=== PATIENT | female | born 1935 | race Caucasian/White ===

== ENCOUNTER 2025-02-26 09:10 | Emergency (ER) | payer MEDICARE, SELFPAY ==
[2025-02-26 09:19] VITALS: BP 145/82
[2025-02-26] MEDS: LET TOPICAL ANESTHETIC GEL 3 ML TOPICAL (09:52)
[2025-02-26 10:00] VITALS: BP 131/63
[2025-02-26 11:36] VITALS: BP 125/58
[2025-02-26 12:00] VITALS: BP 130/54
--- NOTE | 2025-02-26 12:19 | ED.GENMED ---
History of Present Illness
General
Chief Complaint: Fall
Source: patient
Exam Limitations: none
Time Seen by Provider: 02/26/25 09:21
History of Present Illness
History of Present Illness:
89-year-old female who presents from [facility] facility. The patient states that she went to go to the bathroom and fell. She struck her head. The patient my assessment states ', Just let me '. Patient denies any other complaints other
than pain at the site of her head injury. Patient denies neck pain. She denies knee or hip pain. No vomiting
Past History
Past History
ED Past Medical History: Other (Dementia, hypertension, schizophrenia, anxiety, depression)
Phy Exam
Physical Exam
Physical Exam:
CONSTITUTIONAL Patient alert and oriented to person, place and time. Well-appearing. Vital signs reviewed.
HEAD 2.5 cm laceration to the scalp on the left posterior scalp.
EYES eyelids normal to inspection, Extraocular muscles intact, Conjunctiva normal, Sclera normal.
NECK normal range of motion, Trachea midline, no jugular venous distention. No midline tenderness
RESPIRATORY CHEST No respiratory distress noted, Chest expansion equal
BACK normal inspection, no obvious deformities. No midline tenderness
UPPER EXTREMITY range of motion normal, Motor strength normal, no cyanosis, no edema.
LOWER EXTREMITY range of motion normal, knees and hips have full range of motion. No pain with internal or external rotation of the hips motor strength normal, no cyanosis, no edema.
NEURO Speech normal, No focal motor deficits, [place] coma scale 15, Memory normal, Cranial Nerves intact to screening exam.
SKIN skin warm, dry, and normal in color.
Course
Orders/Labs/Results
Orders:
Orders
02/26/25 09:37
Lidocaine/Epinephrine/Tetracai [Let Topical Anesthetic Gel] 3 ml TOPICAL NOW STA
02/26/25 09:38
CT Cervical Spine W/o Iv Contr Urgent
Comment:
Reason For Exam: fall
CT Head W/o Iv Contrast Urgent
Comment:
Reason For Exam: fall
02/26/25 09:39
Lidocaine/Epinephrine/Tetracai [Let Topical Anesthetic Gel] 3 ml .ROUTE .K-MED ONE
Vital Signs
Initial and Last Documented VS:
Initial Vital Signs
Pulse Resp Pulse Ox
68 11 97
02/26/25 09:18 02/26/25 09:18 02/26/25 09:18
Last Documented Vital Signs
Temp Pulse Resp BP Pulse Ox
98.6 F 63 19 130/54 95
02/26/25 09:19 02/26/25 12:15 02/26/25 12:15 02/26/25 12:00 02/26/25 10:15
Procedures
Laceration Closure
Left Scalp:
Status of Wound: clean
Size of Wound in cm: 2.5
Description of Wound Edges: sharp
Preparation: cleaned with saline
Anesthesia: Topical-LET
Revision/Debridement: routine- no revision
Type of Closure: single layer closure
Skin Closure Material: skin costa
Number of sutures: 3
MDM/Problems Addressed
Differential Diagnosis Includes:
Skull fracture, subdural hematoma, intraparenchymal hemorrhage, cervical spine fracture
MDM/Problems Addressed:
Head injury, scalp laceration
*Radiology
Radiology exam reviewed: preliminary read by ED provider (No obvious intracranial acute hemorrhage) and radiology read reviewed
*Pulse Oximetry
Patient hypoxic: no
*Critical Care Note
Total Time (30-74mins, 75-104mins- exclusive of procedures): Not Applicable
Data Reviewed
Source: patient
Further Testing Considered But Not Given:
Consider labs the patient had a mechanical fall
Patient Management
Escalation/DeEscalation of care consider admission/obs:
CT noted but patient does not want advanced interventions. Will refer to outpatient follow-up. Laceration repaired
ED Attending Note
-
Portions of this chart may have been created with voice recognition software.� Occasional wrong word or��sound alike� substitutions may have occurred due to the inherent limitations of voice recognition software.
Discharge Plan
Departure
Patient Disposition: Home (Routine Discharge)
Date of Disposition: 02/26/25
Time of Disposition: 12:23
Patient with high blood pressure during this ER visit?: No
Discharge Problem:
Head injury, Laceration of scalp
Instructions: Wound Care (DC), Head Injury in Adults (DC), Laceration Repair With [place] (DC)
Prescriptions:
No Action
acetaminophen 325 mg Tablet
650 mg PO Q6HPRN PRN (Reason: mild pain, fever)
citalopram 10 mg Tablet
10 mg PO DAILY
clonazepam [Klonopin] 1 mg Tablet
1 mg PO BID
lithium carbonate 150 mg Capsule
150 mg PO BID
amlodipine 10 mg Tablet
10 mg PO DAILY
mirtazapine 30 mg Tablet
30 mg PO HS
Debrox 6.5 % Drops
1 drp OTIC (EAR) BID
lurasidone 60 mg Tablet
60 mg PO DAILY
duloxetine 60 mg Capsule, Delayed Rel Sprinkle
60 mg PO BID
ondansetron HCl [Zofran] 4 mg Tablet
4 mg PO Q8HPRN PRN (Reason: nausea)
loperamide 2 mg Tablet
2 mg PO Q8HPRN PRN (Reason: diarrhea)
levothyroxine [Synthroid] 75 mcg Tablet
75 mcg PO DAILY
magnesium hydroxide [Milk of Magnesia] 400 mg/5 mL Suspension
2,400 mg PO DAILYPRN PRN (Reason: if no bm by 3rd day)
bisacodyl [Dulcolax (bisacodyl)] 10 mg Suppository
10 mg MT DAILYPRN PRN (Reason: if no bm aftr mom)
Fleet Enema 19-7 gram/118 mL Enema
118 ml MT DAILYPRN PRN (Reason: if no bm aftr dulcolcax)
docusate sodium [Colace] 100 mg Capsule
100 mg PO DAILY
Referrals:
Benny Abad, DO [Family Provider] -
Activity Restrictions/Additional Instructions:
Return today for change in mentation, vomiting, weakness of any kind or any other concerns. Please see your doctor in the next 1 week for follow-up and reevaluation.
Interventions
Interventions:
*Risk Screen - Suicide Last Done: 02/26/25 09:21
*General Assessment Last Done: 02/26/25 09:21
*Neglect/Abuse Screening Last Done: 02/26/25 09:21
*ED- Fall Risk Assessment Last Done: 02/26/25 09:24
*ED COVID-19 Vaccine History Last Done: 02/26/25 09:24
ED- Neurological Assessment Last Done: 02/26/25 09:24
ED-Skin Assessment Last Done: 02/26/25 09:26
Discharge Date and Time
Print Language: TAJIK
[2025-02-26 13:00] VITALS: BP 137/67
[2025-02-26 14:18] VITALS: BP 145/67
--- NOTE | 2025-02-26 14:47 | EDRN ---
Pt has dementia. She frequently talks about how she ' doesn't want to live anymore'. Dr aware and does not wish to intervene at this time -
== END 2025-02-26 15:44 | disposition home or self-care (01) ==
LOC: EMR 09:10
PROVIDERS: EMERGENCY PHYSICIAN Emergency Medicine; FAMILY PHYSICIAN Internal Medicine
DX: S09.90XA Unspecified injury of head, initial encounter (principal); S01.01XA Laceration without foreign body of scalp, initial encounter; W19.XXXA Unspecified fall, initial encounter; F03.93 Unspecified dementia, unspecified severity, with mood disturbance; F03.94 Unspecified dementia, unspecified severity, with anxiety; F20.9 Schizophrenia, unspecified; F32.A Depression, unspecified; I10 Essential (primary) hypertension
CPT/HCPCS: 99284; 70450; 72100; 72125

== ENCOUNTER 2025-06-13 14:00 | Emergency (ER) | payer MEDICARE, SELFPAY ==
[2025-06-13] VITALS (7 sets, daily range): BP systolic 114–161; BP diastolic 54–107; BMI 19.4
--- NOTE | 2025-06-13 14:41 | ED.GENMED ---
History of Present Illness
General
Chief Complaint: Fall
Time Seen by Provider: 06/13/25 14:14
History of Present Illness
History of Present Illness:
89-year-old female presents to the emergency department from a memory care facility after a witnessed fall with head strike. She is unable to provide any history secondary to dementia and frequently is calling out for help.
Past History
Past History
ED Past Medical History: Other (Dementia, hypertension, schizophrenia, anxiety, depression)
Review of Systems
Review of Systems
Allergies reviewed?: Yes
All Other Systems: ROS reviewed and negative except as documented in HPI and ROS
Phy Exam
Physical Exam
Physical Exam:
GEN: Well appearing, NAD, WDWN
HEENT: 2 to 3 cm left forehead hematoma with central laceration, no active bleeding, no palpable crepitus oral mucosa moist, no scleral icterus
Cardiac: Regular rate
Lung: No respiratory distress, no tachypnea
MSK: No gross deformity or injuries, no obvious pain response to palpation of the midline cervical, thoracic, or lumbar spine. Pelvis is stable with no crepitus, bilateral hip range of motion normal
Skin: Good color, no pallor or jaundice, no rashes
Neuro: Alert, profoundly confused, calling out for help frequently, moves all extremities freely
Psych: Calm, cooperative
Course
Orders/Labs/Results
Orders:
Orders
06/13/25 14:40
CT Cervical Spine W/o Iv Contr Urgent
Comment:
Reason For Exam: fall
CT Head W/o Iv Contrast Urgent
Comment:
Reason For Exam: fall
06/13/25 14:43
Complete Blood Count/No Diff Urgent
Comprehensive Metabolic Panel Urgent
[place] Urgent
06/13/25 15:24
Haloperidol Lactate [Haldol] 2 mg IM NOW STA
Abnormal Lab Results
06/13/25
14:43
WBC 11.0 H 10^3/uL
(4.8-10.8)
Chloride 109 H mmol/L
(98-107)
Glucose 119 H mg/dl
(70-99)
[place] 0.3 L mmol/L
(0.6-1.2)
06/13/25 14:43
06/13/25 14:43
Vital Signs
Initial and Last Documented VS:
Initial Vital Signs
Temp Pulse Resp BP Pulse Ox
97.8 F 78 17 152/68 100
06/13/25 14:05 06/13/25 14:05 06/13/25 14:05 06/13/25 14:05 06/13/25 14:05
Last Documented Vital Signs
Temp Pulse Resp BP Pulse Ox
97.8 F 66 17 114/54 100
06/13/25 14:05 06/13/25 19:00 06/13/25 19:00 06/13/25 19:00 06/13/25 16:00
*Pulse Oximetry
SaO2: 100
Oxygen Mode of Delivery: Room air
Patient hypoxic: no
*Critical Care Note
Total Time (30-74mins, 75-104mins- exclusive of procedures): Not Applicable
ED Attending Note
-
Portions of this chart may have been created with voice recognition software.� Occasional wrong word or��sound alike� substitutions may have occurred due to the inherent limitations of voice recognition software.
Discharge Plan
Departure
Patient Disposition: Home (Routine Discharge)
Date of Disposition: 06/13/25
Time of Disposition: 17:10
Patient with high blood pressure during this ER visit?: No
Discharge Problem:
Fall
Instructions: Preventing falls in adults
Prescriptions:
No Action
acetaminophen 325 mg Tablet
650 mg PO Q6HPRN PRN (Reason: mild pain, fever)
citalopram 10 mg Tablet
10 mg PO DAILY
clonazepam [Klonopin] 1 mg Tablet
1 mg PO BID
lithium carbonate 150 mg Capsule
150 mg PO BID
amlodipine 10 mg Tablet
10 mg PO DAILY
mirtazapine 30 mg Tablet
30 mg PO HS
Debrox 6.5 % Drops
1 drp OTIC (EAR) BID
lurasidone 60 mg Tablet
60 mg PO DAILY
duloxetine 60 mg Capsule, Delayed Rel Sprinkle
60 mg PO BID
ondansetron HCl [Zofran] 4 mg Tablet
4 mg PO Q8HPRN PRN (Reason: nausea)
loperamide 2 mg Tablet
2 mg PO Q8HPRN PRN (Reason: diarrhea)
levothyroxine [Synthroid] 75 mcg Tablet
75 mcg PO DAILY
magnesium hydroxide [Milk of Magnesia] 400 mg/5 mL Suspension
2,400 mg PO DAILYPRN PRN (Reason: if no bm by 3rd day)
bisacodyl [Dulcolax (bisacodyl)] 10 mg Suppository
10 mg DE DAILYPRN PRN (Reason: if no bm aftr mom)
Fleet Enema 19-7 gram/118 mL Enema
118 ml DE DAILYPRN PRN (Reason: if no bm aftr dulcolcax)
docusate sodium [Colace] 100 mg Capsule
100 mg PO DAILY
Referrals:
Benny Abad DO [Family Provider, Internal Medicine]
Interventions
Interventions:
*Risk Screen - Suicide Last Done: 06/13/25 14:10
*General Assessment Last Done: 06/13/25 14:10
*Neglect/Abuse Screening Last Done: 06/13/25 14:10
*ED- Fall Risk Assessment Last Done: 06/13/25 14:10
*ED COVID-19 Vaccine History Last Done: 06/13/25 14:10
*Nursing Disposition Last Done: 06/13/25 18:40
ED-Musculoskeletal Assessment Last Done: 06/13/25 14:10
ED- Neurological Assessment Last Done: 06/13/25 17:00
ED-Skin Assessment Last Done: 06/13/25 14:14
Discharge Date and Time
Discharge Date/Time: 06/13/25 19:32
Print Language: IRISH
[2025-06-13 14:57] LABS: Hematocrit 42.1 % (37.0-47.0); Hemoglobin 14.0 g/dL (12.0-16.0); Mean Corp Hgb Conc. 33.3 g/dL (33.0-37.0); Mean Corpuscular Volume 88.4 fL (81.0-99.0); Platelet Count 296 10^3/uL (130-400); Red Cell Dist. Width 14.0 % (11.5-14.5)
[2025-06-13 15:10] LABS: ALT (SGPT) 22 U/L (0-35); AST (SGOT) 21 U/L (14-36); Albumin 3.6 g/dl (3.5-5.0); Alkaline Phosphatase 83 U/L (38-126); Blood Urea Nitrogen 15 mg/dl (7-17); Calcium 9.8 mg/dl (8.4-10.2); Carbon Dioxide 27 mmol/L (22-30); Chloride 109 mmol/L (98-107); Estimated Creatinine Clearance 41 ml/min; Glucose 119 mg/dl (70-99); Lithium 0.3 mmol/L (0.6-1.2); Potassium 3.8 mmol/L (3.5-5.1); Sodium 141 mmol/L (135-145); Total Protein 6.8 g/dl (6.3-8.2); eGFR > 60.00
[2025-06-13] MEDS: HALDOL 2 MG IM (15:27)
== END 2025-06-13 19:32 ==
LOC: EMR 14:00
PROVIDERS: Physician Assistant; EMERGENCY PHYSICIAN Emergency Medicine; FAMILY PHYSICIAN Internal Medicine
DX: S00.83XA Contusion of other part of head, initial encounter (principal); W19.XXXA Unspecified fall, initial encounter; F03.94 Unspecified dementia, unspecified severity, with anxiety; I10 Essential (primary) hypertension
CPT/HCPCS: 96372; 99284; 70450; 72125; 80053; 80178; 85027